=== PATIENT | male | born 1940 | race Caucasian/White ===

== ENCOUNTER 2016-08-31 14:05 | Inpatient (IN) | payer MEDICARE, OTHER ==
[~2016-08-31] VITALS: Ht 154.9 cm; Wt 48.6 kg
[2016-08-31] MEDS ORDERED: IPRATRPIUM/ALBUTEROL 0.5/2.5MG 3 ML NEBU. NEB ONE (14:30)
[2016-08-31] MEDS ORDERED: PREDNISONE 20 MG TABLET PO ONE (14:30)
[2016-08-31 14:38] LABS: BASO % 1 % (0-3); EOS % 6 % (0-3); HEMATOCRIT 39.3 % (39.0-53.0); HEMOGLOBIN 12.4 g/dL (13.0-17.5); LYMPH # 0.3 x10^3/uL (1.0-4.8); LYMPH % 7 % (24-48); MEAN CORPUSCULAR HEMOGLOBIN 28 pg (25-35); MEAN CORPUSCULAR HGB CONC 32 g/dL (31-37); MEAN CORPUSCULAR VOLUME 88 fL (79-100); MONO % 10 % (0-9); NEUT % 77 % (31-73); PLATELET COUNT 190 x10^3/uL (140-400); RED BLOOD COUNT 4.45 x10^6/uL (4.30-5.70); RED CELL DISTRIBUTION WIDTH 14.5 % (11.5-14.5); WHITE BLOOD COUNT 4.5 x10^3/uL (4.0-11.0)
[2016-08-31 14:46] LABS: CREATININE 0.6 mg/dL (0.7-1.3); GFR 130.6; POTASSIUM 4.5 mmol/L (3.5-5.1)
[2016-08-31 14:54] LABS: ALBUMIN 3.3 g/dL (3.4-5.0); DIRECT BILIRUBIN 0.1 mg/dL (0.0-0.2); TOTAL BILIRUBIN 0.6 mg/dL (0.2-1.0)
--- NOTE | 2016-08-31 15:02 | RAD ---
Indication chest pain. Shortness of air. Cough. A single view of the chest was obtained. No prior imaging is available. There are probable background changes of emphysema and/or fibrosis. There are changes in the right upper lobe likely reflecting scar. There is slightly increased density and volume loss in the left lower lobe probably chronic reflecting fibrosis. Underlying inflammation at the left lung base is not entirely excluded. A definite consolidated pneumonia is not seen. Heart size and pulmonary vessels are normal. Significant pleural fluid is not seen. There is no pneumothorax. The bony structures appear grossly intact. IMPRESSION: Chronic changes. No definite acute finding. Changes in the right upper and left lower lobe most likely chronic and reflecting scarring or fibrosis.. See above discussion
--- NOTE | 2016-08-31 15:20 | PHYS DOC ---
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 He received a nebulizer treatment prior to arrival by EMS. This did improve his symptoms. He reports wearing oxygen at home regularly. He denies chest pain abdominal pain nausea vomiting fevers or chills. Onset 2 days Location lungs Duration intermittent Associated with cough No specific timing. Review of Systems Review of Systems ROS negative for chest pain abdominal pain nausea vomiting fevers chills. All other review of systems is negative unless otherwise noted in history of present illness. Current Medications Current Medications Current Medications Medications (Trade) Dose Ordered Sig/Cody Start Time Stop Time Status Last Admin Dose Admin Albuterol/ Ipratropium (Duoneb) 3 ml 1X ONCE 08/31/16 14:30 08/31/16 14:31 DC 08/31/16 15:14 3 ML Prednisone (Prednisone) 50 mg 1X ONCE 08/31/16 14:30 08/31/16 14:31 DC 08/31/16 14:58 50 MG Allergies Allergies Allergies Coded Allergies Type Severity Reaction Last Updated Verified No Known Drug Allergies 08/31/16 No Physical Exam Physical Exam Constitutional: Well developed, well nourished, no acute distress, non-toxic appearance. HENT: Normocephalic, atraumatic, bilateral external ears normal, oropharynx moist, no oral exudates, nose normal. [] Eyes: PERRLA, EOMI, conjunctiva normal, no discharge. Neck: Normal range of motion, no tenderness, supple, no stridor. [] Cardiovascular:Heart rate regular rhythm, no murmur Lungs & Thorax: Patient is wheezing bilaterally with prolonged expiratory phase. No crackles present. Abdomen: Bowel sounds normal, soft, no tenderness, no masses, no pulsatile masses. [] Skin: Warm, dry, no erythema, no rash. Back: No tenderness, no CVA tenderness. Extremities: No tenderness, no cyanosis, no clubbing, ROM intact, no edema. Neurologic: Alert and oriented X 3, normal motor function, normal sensory function, no focal deficits noted. [] Psychologic: Affect normal, judgement normal, mood normal. [] Current Patient Data Vital Signs Vital Signs Date Time Temp Pulse Resp B/P Pulse Ox O2 Delivery O2 Flow Rate FiO2 08/31/16 15:14 95 Nasal Cannula 2.0 08/31/16 14:05 97.9 62 24 151/85 97.9 Lab Values Laboratory Tests Test 08/31/16 14:15 White Blood Count 4.5x10^3/uL (4.0-11.0) Red Blood Count 4.45x10^6/uL (4.30-5.70) Hemoglobin 12.4g/dL (13.0-17.5) L Hematocrit 39.3% (39.0-53.0) Mean Corpuscular Volume 88fL (79-100) Mean Corpuscular Hemoglobin 28pg (25-35) Mean Corpuscular Hemoglobin Concent 32g/dL (31-37) Red Cell Distribution Width 14.5% (11.5-14.5) Platelet Count 190x10^3/uL (140-400) Neutrophils (%) (Auto) 77% (31-73) H Lymphocytes (%) (Auto) 7% (24-48) L Monocytes (%) (Auto) 10% (0-9) H Eosinophils (%) (Auto) 6% (0-3) H Basophils (%) (Auto) 1% (0-3) Neutrophils # (Auto) 3.5x10^3uL (1.8-7.7) Lymphocytes # (Auto) 0.3x10^3/uL (1.0-4.8) L Monocytes # (Auto) 0.4x10^3/uL (0.0-1.1) Eosinophils # (Auto) 0.3x10^3/uL (0.0-0.7) Basophils # (Auto) 0.0x10^3/uL (0.0-0.2) Sodium Level 137mmol/L (136-145) Potassium Level 4.5mmol/L (3.5-5.1) Chloride Level 96mmol/L (98-107) L Carbon Dioxide Level 35mmol/L (21-32) H Anion Gap 6 (6-14) Blood Urea Nitrogen 15mg/dL (8-26) Creatinine 0.6mg/dL (0.7-1.3) L Estimated GFR (Cockcroft-Gault) 130.6 Glucose Level 97mg/dL (70-99) Calcium Level 9.0mg/dL (8.5-10.1) Total Bilirubin 0.6mg/dL (0.2-1.0) Direct Bilirubin 0.1mg/dL (0.0-0.2) Aspartate Amino Transferase (AST) 17U/L (15-37) Alanine Aminotransferase (ALT) 21U/L (16-63) Alkaline Phosphatase 94U/L (46-116) Troponin I Quantitative < 0.017ng/mL (0.000-0.055) AM-Tji-Z-Type Natriuretic Peptide 174pg/mL (0-449) Total Protein 7.0g/dL (6.4-8.2) Albumin 3.3g/dL (3.4-5.0) L Lipase 96U/L (73-393) Laboratory Tests 08/31/16 14:15 Laboratory Tests 08/31/16 14:15 EKG EKG [] EKG was attempted to be obtained for greater than 30 minutes and even after all of this work it is very difficult to interpret because of extraordinarily varying baseline. The patient's rate is within normal limits. P-wave is appreciable. [place] is within normal limits. Intervals are within normal limits. ST segments are difficult to interpret based on the patient's variable baseline. Patient's symptoms are not suggestive of ACS. Troponin negative. Improved with DuoNeb. Radiology/Procedures Radiology/Procedures [] Chest x-ray showed chronic changes without acute findings. Course & Med Decision Making Course & Med Decision Making Pertinent Labs and Imaging studies reviewed. (See chart for details) 76-year-old male presenting to the emergency department with cough and shortness of breath with wheezing on physical exam consistent with COPD exacerbation. He was given DuoNeb therapies along with steroids. On reevaluation his symptoms continued though mildly improved. Chest x-ray unremarkable. EKG difficult to interpret. No obvious abnormalities. CBC showed mild anemia. Chemistry panel largely unremarkable. Troponin negative. ProBNP within normal limits. He was then admitted for further evaluation workup and care. Dragon Disclaimer Dragon Disclaimer This electronic medical record was generated, in whole or in part, using a voice recognition dictation system. Departure Departure Impression: Primary Impression: COPD (chronic obstructive pulmonary disease) Disposition: 09 ADMITTED INPATIENT Admitting Physician: Other (RUST) Condition: STABLE Referrals: DANIEL FLOWERS NP (PCP) MICHAEL AUSTIN MD Aug 31, 2016 15:19
[2016-08-31] MEDS: IPRATRPIUM/ALBUTEROL 0.5/2.5MG 3 ML NEBU. NEB SCH ×2 (15:26→19:52)
[2016-08-31] MEDS ORDERED: ONDANSETRON PF 4 MG/2 ML VIAL. IV PRN (15:30)
[2016-08-31] MEDS ORDERED: MORPHINE SULFATE 2 MG/ML DISP.SYRIN. IV PRN (15:30)
[2016-08-31 19:00] VITALS: BP 123/72
[2016-08-31 22:48] VITALS: BP 121/60
[2016-09-01 02:53] VITALS: BP 133/62
[2016-09-01 05:06] LABS: BASO % 0 % (0-3); EOS % 0 % (0-3); HEMATOCRIT 38.5 % (39.0-53.0); HEMOGLOBIN 12.1 g/dL (13.0-17.5); LYMPH # 0.2 x10^3/uL (1.0-4.8); LYMPH % 5 % (24-48); MEAN CORPUSCULAR HEMOGLOBIN 28 pg (25-35); MEAN CORPUSCULAR HGB CONC 31 g/dL (31-37); MEAN CORPUSCULAR VOLUME 88 fL (79-100); MONO % 2 % (0-9); NEUT % 93 % (31-73); PLATELET COUNT 180 x10^3/uL (140-400); RED BLOOD COUNT 4.36 x10^6/uL (4.30-5.70); RED CELL DISTRIBUTION WIDTH 14.5 % (11.5-14.5); WHITE BLOOD COUNT 3.8 x10^3/uL (4.0-11.0)
[2016-09-01 06:20] LABS: CALCIUM 9.2 mg/dL (8.5-10.1); CREATININE 0.5 mg/dL (0.7-1.3); GFR 161.2; POTASSIUM 3.9 mmol/L (3.5-5.1)
--- NOTE | 2016-09-01 06:44 | EKG ---
[facility] [address] [place] [address] Test Date: 2016-08-31 Test Time: 14:42:41 Pat Name: YARELI FORMAN Department: Room: [facility] Gender: M Owner/Photographer: : 1940 Requested By: MICHAEL AUSTIN Order Number: [id number] Reading MD: Alissa Mccarthy Measurements Intervals [place] Rate: 76 P: OR: QRS: 39 QRSD: 94 T: 78 QT: 372 QTc: 423 Interpretive Statements SINUS RHYTHM T ABNORMALITY IN HIGH LATERAL LEADS ABNORMAL ECG RI6.01 No previous ECG available for comparison Electronically Signed On 09-03-2016 23:22:49 [employer] by Alissa Mccarthy
[2016-09-01 06:57] LABS: PLT ESTIMATE ADEQUATE (ADEQUATE)
[2016-09-01 07:00] VITALS: BP 134/58
[2016-09-01] MEDS: IPRATRPIUM/ALBUTEROL 0.5/2.5MG 3 ML NEBU. NEB SCH ×5 (07:06→20:09)
[2016-09-01] MEDS ORDERED: HYDR-2672 PO (09:49)
[2016-09-01] MEDS ORDERED: TIOT18CA IH (09:49)
[2016-09-01] MEDS ORDERED: MORP30TA3 PO (09:49)
[2016-09-01] MEDS ORDERED: ERGO500012 PO (09:49)
[2016-09-01] MEDS ORDERED: FLUT1DIS3 IH (09:49)
[2016-09-01] MEDS ORDERED: ESOM20CA PO (09:49)
[2016-09-01 11:27] VITALS: BP 114/56
[2016-09-01] MEDS ORDERED: HYDROCODONE/APAP 10/325 TABLET. PO PRN (11:45)
[2016-09-01] MEDS ORDERED: MORPHINE ER 30 MG TABLET.ER PO PRN (11:45)
[2016-09-01] MEDS ORDERED: methylPREDNISolone SOD SUCC PF 40 MG/ML VIAL. IV SCH (13:30)
[2016-09-01] MEDS: PANTOPRAZOLE 40 MG TABLET. PO SCH (14:33)
[2016-09-01] MEDS: methylPREDNISolone SOD SUCC PF 40 MG/ML VIAL. IV SCH ×2 (14:34→20:37)
[2016-09-01 15:03] VITALS: BP 143/66
--- NOTE | 2016-09-01 15:05 | HP ---
ADMIT DATE: 09/01/2016 CHIEF COMPLAINT: Shortness of breath and cough. HISTORY OF PRESENT ILLNESS: The patient is a pleasant elderly male who has known COPD. He presents with shortness of breath and cough. It has been worsening over the past couple of days. He has got associated weakness, rates it at 9 out of 10. I have discussed the case with the ER physician. We are going to admit the patient and consult Pulmonary Medicine. PAST MEDICAL HISTORY: COPD, Charcot-Daniella tooth. ALLERGIES: None. FAMILY HISTORY: Coronary artery disease. SOCIAL HISTORY: Smokes. No drinking or drugs. MEDICATIONS: Reviewed, please refer to the MRAD. REVIEW OF SYSTEMS: GENERAL: No history of weight change, weakness or fevers. SKIN: No bruising, hair changes or rashes. EYES: No blurred, double or loss of vision. NOSE AND THROAT: No history of nosebleeds, hoarseness or sore throat. HEART: No history of palpitations, chest pain or shortness of breath on exertion. LUNGS: He complains of shortness of breath and cough. GASTROINTESTINAL: Denies changes in appetite, nausea, vomiting, diarrhea or constipation. GENITOURINARY: No history of frequency, urgency, hesitancy or nocturia. NEUROLOGIC: Denies history of numbness, tingling, tremor or weakness. PSYCHIATRIC: No history of panic, anxiety or depression. ENDOCRINE: No history of heat or cold intolerance, polyuria or polydipsia. EXTREMITIES: Denies muscle weakness, joint pain, pain on walking or stiffness. PHYSICAL EXAMINATION: VITAL SIGNS: Temperature afebrile, pulse 80, respirations 20, blood pressure 114/56, O2 sat 80% on 2 liters. GENERAL: He is alert, cooperative, weak. HEART: Normal S1, S2. LUNGS: Very diminished. ABDOMEN: Soft, positive bowel sounds. EXTREMITIES: 1+ edema with Charcot joints. ENDOCRINE: No thyromegaly. LYMPHATICS: No cervical nodes. HEMATOPOIETIC: No bruising. LABORATORY DATA: White count 4, hemoglobin 12, platelets 190. Electrolytes; sodium 139, potassium 3.9, chloride 96, bicarbonate 35, BUN 15, creatinine 0.5, glucose 78. Chest x-ray shows chronic changes, but no acute changes. He has scarring and fibrosis. ASSESSMENT AND PLAN: [id number] respiratory failure secondary to chronic obstructive pulmonary disease. The patient has been admitted. We will treat with IV steroids, breathing treatments, oxygen, and antibiotics if Pulmonary agrees. Consult Dr. Diaz, continue home meds, PT, OT, frequent labs. ELEAZAR MEDINA DO DR: BRENNON/iggy JOB#: [id number] / [id number]
--- NOTE | 2016-09-01 16:14 | PDOC ---
PULMONARY PROGRESS NOTES Vitals Vital Signs Date Time Temp Pulse Resp B/P Pulse Ox O2 Delivery O2 Flow Rate FiO2 09/01/16 15:48 Nasal Cannula 2.0 09/01/16 15:03 97.8 84 16 143/66 94 97.8 Labs Laboratory Tests Test 08/31/16 14:15 08/31/16 20:40 09/01/16 03:45 09/01/16 04:50 White Blood Count 4.5x10^3/uL (4.0-11.0) 3.8x10^3/uL (4.0-11.0) Red Blood Count 4.45x10^6/uL (4.30-5.70) 4.36x10^6/uL (4.30-5.70) Hemoglobin 12.4g/dL (13.0-17.5) 12.1g/dL (13.0-17.5) Hematocrit 39.3% (39.0-53.0) 38.5% (39.0-53.0) Mean Corpuscular Volume 88fL (79-100) 88fL (79-100) Mean Corpuscular Hemoglobin 28pg (25-35) 28pg (25-35) Mean Corpuscular Hemoglobin Concent 32g/dL (31-37) 31g/dL (31-37) Red Cell Distribution Width 14.5% (11.5-14.5) 14.5% (11.5-14.5) Platelet Count 190x10^3/uL (140-400) 180x10^3/uL (140-400) Neutrophils (%) (Auto) 77% (31-73) 93% (31-73) Lymphocytes (%) (Auto) 7% (24-48) 5% (24-48) Monocytes (%) (Auto) 10% (0-9) 2% (0-9) Eosinophils (%) (Auto) 6% (0-3) 0% (0-3) Basophils (%) (Auto) 1% (0-3) 0% (0-3) Neutrophils # (Auto) 3.5x10^3uL (1.8-7.7) 3.5x10^3uL (1.8-7.7) Lymphocytes # (Auto) 0.3x10^3/uL (1.0-4.8) 0.2x10^3/uL (1.0-4.8) Monocytes # (Auto) 0.4x10^3/uL (0.0-1.1) 0.1x10^3/uL (0.0-1.1) Eosinophils # (Auto) 0.3x10^3/uL (0.0-0.7) 0.0x10^3/uL (0.0-0.7) Basophils # (Auto) 0.0x10^3/uL (0.0-0.2) 0.0x10^3/uL (0.0-0.2) Sodium Level 137mmol/L (136-145) 139mmol/L (136-145) Potassium Level 4.5mmol/L (3.5-5.1) 3.9mmol/L (3.5-5.1) Chloride Level 96mmol/L (98-107) 96mmol/L (98-107) Carbon Dioxide Level 35mmol/L (21-32) 35mmol/L (21-32) Anion Gap 6 (6-14) 8 (6-14) Blood Urea Nitrogen 15mg/dL (8-26) 15mg/dL (8-26) Creatinine 0.6mg/dL (0.7-1.3) 0.5mg/dL (0.7-1.3) Estimated GFR (Cockcroft-Gault) 130.6 161.2 Glucose Level 97mg/dL (70-99) 78mg/dL (70-99) Calcium Level 9.0mg/dL (8.5-10.1) 9.2mg/dL (8.5-10.1) Total Bilirubin 0.6mg/dL (0.2-1.0) Direct Bilirubin 0.1mg/dL (0.0-0.2) Aspartate Amino Transf (AST/SGOT) 17U/L (15-37) Alanine Aminotransferase (ALT/SGPT) 21U/L (16-63) Alkaline Phosphatase 94U/L (46-116) Troponin I Quantitative < 0.017ng/mL (0.000-0.055) < 0.017ng/mL (0.000-0.055) < 0.017ng/mL (0.000-0.055) CN-Ide-A-Type Natriuretic Peptide 174pg/mL (0-449) Total Protein 7.0g/dL (6.4-8.2) Albumin 3.3g/dL (3.4-5.0) Lipase 96U/L (73-393) Segmented Neutrophils % 98% (35-66) Lymphocytes % 2% (24-48) Platelet Estimate Adequate (ADEQUATE) Laboratory Tests Test 08/31/16 20:40 09/01/16 03:45 09/01/16 04:50 Troponin I Quantitative < 0.017ng/mL (0.000-0.055) < 0.017ng/mL (0.000-0.055) Sodium Level 139mmol/L (136-145) Potassium Level 3.9mmol/L (3.5-5.1) Chloride Level 96mmol/L (98-107) Carbon Dioxide Level 35mmol/L (21-32) Anion Gap 8 (6-14) Blood Urea Nitrogen 15mg/dL (8-26) Creatinine 0.5mg/dL (0.7-1.3) Estimated GFR (Cockcroft-Gault) 161.2 Glucose Level 78mg/dL (70-99) Calcium Level 9.2mg/dL (8.5-10.1) White Blood Count 3.8x10^3/uL (4.0-11.0) Red Blood Count 4.36x10^6/uL (4.30-5.70) Hemoglobin 12.1g/dL (13.0-17.5) Hematocrit 38.5% (39.0-53.0) Mean Corpuscular Volume 88fL (79-100) Mean Corpuscular Hemoglobin 28pg (25-35) Mean Corpuscular Hemoglobin Concent 31g/dL (31-37) Red Cell Distribution Width 14.5% (11.5-14.5) Platelet Count 180x10^3/uL (140-400) Neutrophils (%) (Auto) 93% (31-73) Lymphocytes (%) (Auto) 5% (24-48) Monocytes (%) (Auto) 2% (0-9) Eosinophils (%) (Auto) 0% (0-3) Basophils (%) (Auto) 0% (0-3) Neutrophils # (Auto) 3.5x10^3uL (1.8-7.7) Lymphocytes # (Auto) 0.2x10^3/uL (1.0-4.8) Monocytes # (Auto) 0.1x10^3/uL (0.0-1.1) Eosinophils # (Auto) 0.0x10^3/uL (0.0-0.7) Basophils # (Auto) 0.0x10^3/uL (0.0-0.2) Segmented Neutrophils % 98% (35-66) Lymphocytes % 2% (24-48) Platelet Estimate Adequate (ADEQUATE) Medications Active Scripts Medications Dose Route/Sig Days Date Category Vitamin D2 (Ergocalciferol (Vitamin D2)) 50,000 Unit Capsule 1 Cap PO TWICE WEEKLY 09/01/16 Reported Advair 250-50 Diskus (Fluticasone/Salmeterol) 1 Each Disk.w.dev 1 Puff IH BID 09/01/16 Reported Morphine Sulfate Er (Morphine Sulfate) 30 Mg Tablet.er 1 Tab PO PRN TID PRN 09/01/16 Reported Hydrocodone-Apap 10-325 (Hydrocodone Bit/Acetaminophen) 1 Each Tablet 1 Tab PO PRN Q6HRS PRN 09/01/16 Reported Nexium Capsule (Esomeprazole Magnesium) 20 Mg Capsule.dr 1 Cap PO DAILY 09/01/16 Reported Spiriva (Tiotropium Ursa) 18 Mcg Cap.w.dev 1 Cap IH DAILY 09/01/16 Reported Impression . consult dictated thanks aecopd acute resp failure see orders RUDY LYON MD Sep 01, 2016 16:14
[2016-09-01] MEDS: DOXYCYCLINE HYCLATE 100 MG TABLET PO SCH (18:35)
[2016-09-01 19:54] VITALS: BP 133/65
[2016-09-01] MEDS: BUDESONIDE 0.5 MG/2 ML NEBU NEB SCH (20:09)
--- NOTE | 2016-09-01 22:55 | CONS ---
DATE OF CONSULTATION: 08/31/2016 ATTENDING PHYSICIAN: Dr. Goode. DICTATING PHYSICIAN: Dr. Rudy Lyon. REASON FOR CONSULTATION: The patient seen in pulmonary consultation at the request of Dr. Goode for increasing shortness of air. HISTORY OF PRESENT ILLNESS: The patient is a 76-year-old male that has underlying chronic obstructive pulmonary disease, has been on oxygen supplementation for the past 7 years at 2 liters per nasal cannula, presented with increasing shortness of breath over the last 24-48 hours. No documented fever, subjective fever; cough productive of yellow sputum. The patient states he felt better all over. He presented and was admitted. I have reviewed his chest x-ray, which revealed no evidence of infiltrates. There are some chronic changes, mostly in the upper lobes compatible with fibrosis. PAST MEDICAL HISTORY: 1. COPD. 2. Sldjfvo-Vbfke-Mwwwc disease. ALLERGIES: No known drug allergies. FAMILY HISTORY: Coronary artery disease. SOCIAL HISTORY: He continues to smoke. Denies any alcohol intake. REVIEW OF SYSTEMS: As indicated above, otherwise, a 10-point system was reviewed and negative. MEDICATIONS: List was reviewed. FAMILY HISTORY: Noncontributory. PHYSICAL EXAMINATION: GENERAL: The patient was in no respiratory distress. VITAL SIGNS: Stable. O2 saturation currently on 2 liters was greater than 92%. HEENT: Eyes, the sclerae were nonicteric. NECK: Jugular venous distention was not elevated. No lymphadenopathy. CHEST: Full expansion. LUNGS: Coarse breath sounds, expiratory wheeze. CARDIOVASCULAR: Regular rate and rhythm with S1, S2, no S3. ABDOMEN: Soft, nontender, nondistended. EXTREMITIES: No clubbing, cyanosis or edema. NEUROLOGIC: The patient was awake, alert, following commands. A detailed neuro exam was not performed. LABORATORY DATA: Reviewed. White count was normal. Hemoglobin and hematocrit were noted. Electrolytes were noted. IMPRESSION: 1. Acute on chronic respiratory failure. 2. Acute exacerbation of chronic obstructive pulmonary disease. 3. Acute nonspecific bronchitis. 4. Chronic changes on x-ray compatible with pulmonary fibrosis. PLAN: 1. Continue oxygen supplementation. 2. Steroids. 3. Antibiotics for acute bronchitis. I do appreciate the privilege in sharing in the patient's care. RUDY LYON MD DR: ELMO/iggy JOB#: [id number] / [id number]
[2016-09-01 23:06] VITALS: BP 135/61
[2016-09-02 01:15] LABS: OBC FLU VALID
[2016-09-02 03:12] VITALS: BP 144/71
[2016-09-02 04:26] LABS: BASO % 0 % (0-3); EOS % 0 % (0-3); HEMATOCRIT 36.9 % (39.0-53.0); HEMOGLOBIN 11.6 g/dL (13.0-17.5); LYMPH # 0.2 x10^3/uL (1.0-4.8); LYMPH % 5 % (24-48); MEAN CORPUSCULAR HEMOGLOBIN 28 pg (25-35); MEAN CORPUSCULAR HGB CONC 32 g/dL (31-37); MEAN CORPUSCULAR VOLUME 87 fL (79-100); MONO % 1 % (0-9); NEUT % 94 % (31-73); PLATELET COUNT 198 x10^3/uL (140-400); RED BLOOD COUNT 4.24 x10^6/uL (4.30-5.70); RED CELL DISTRIBUTION WIDTH 14.3 % (11.5-14.5); WHITE BLOOD COUNT 3.5 x10^3/uL (4.0-11.0)
[2016-09-02 05:41] LABS: CALCIUM 9.1 mg/dL (8.5-10.1); CREATININE 0.6 mg/dL (0.7-1.3); GFR 130.6; POTASSIUM 4.6 mmol/L (3.5-5.1)
[2016-09-02 07:00] VITALS: BP 128/60
[2016-09-02] MEDS: BUDESONIDE 0.5 MG/2 ML NEBU NEB SCH ×2 (07:06→19:08)
[2016-09-02] MEDS: IPRATRPIUM/ALBUTEROL 0.5/2.5MG 3 ML NEBU. NEB SCH ×4 (07:06→19:08)
[2016-09-02] MEDS: PANTOPRAZOLE 40 MG TABLET. PO SCH (08:32)
[2016-09-02] MEDS: methylPREDNISolone SOD SUCC PF 40 MG/ML VIAL. IV SCH ×2 (08:32→20:22)
[2016-09-02] MEDS: DOXYCYCLINE HYCLATE 100 MG TABLET PO SCH ×2 (08:32→20:23)
[2016-09-02 11:00] VITALS: BP 107/58
[2016-09-02] MEDS ORDERED: POLYETHYLENE GLYCOL 3350 17 GM PACKET. PO PRN (14:00)
[2016-09-02] MEDS ORDERED: MAGNESIUM HYDROXIDE 2,400 MG/30 ML ORAL.SUSP. PO PRN (14:00)
--- NOTE | 2016-09-02 14:01 | PDOC ---
PROGRESS NOTES Chief Complaint Chief Complaint - Acute hypoxic respiratory failure - Acute exacerbation COPD - [place] Daniella Tooth History of Present Illness History of Present Illness 76 year old male examined while lying in bed this morning. He states he does feel his condition has improved and that he is breathing much better. He complains of a persistent hacking cough that is occasionally productive. Denies fevers or chills. Vitals Vitals Vital Signs Date Time Temp Pulse Resp B/P Pulse Ox O2 Delivery O2 Flow Rate FiO2 09/02/16 11:22 97 Nasal Cannula 2.0 09/02/16 11:00 97.5 76 20 107/58 97.5 Physical Exam General: Alert, Oriented X3, Cooperative, No acute distress Heart: Regular rate, Normal S1, Normal S2, No murmurs Lungs: Wheezing (slight b/l) Abdomen: Normal bowel sounds, Soft, No tenderness Extremities: No clubbing, No cyanosis, No edema Skin: No breakdown, No significant lesion Labs LABS Laboratory Tests Test 09/02/16 00:30 09/02/16 03:55 Influenza Type A Antigen Negative (NEGATIVE) Influenza Type B Antigen Negative (NEGATIVE) White Blood Count 3.5x10^3/uL (4.0-11.0) Red Blood Count 4.24x10^6/uL (4.30-5.70) Hemoglobin 11.6g/dL (13.0-17.5) Hematocrit 36.9% (39.0-53.0) Mean Corpuscular Volume 87fL (79-100) Mean Corpuscular Hemoglobin 28pg (25-35) Mean Corpuscular Hemoglobin Concent 32g/dL (31-37) Red Cell Distribution Width 14.3% (11.5-14.5) Platelet Count 198x10^3/uL (140-400) Neutrophils (%) (Auto) 94% (31-73) Lymphocytes (%) (Auto) 5% (24-48) Monocytes (%) (Auto) 1% (0-9) Eosinophils (%) (Auto) 0% (0-3) Basophils (%) (Auto) 0% (0-3) Neutrophils # (Auto) 3.3x10^3uL (1.8-7.7) Lymphocytes # (Auto) 0.2x10^3/uL (1.0-4.8) Monocytes # (Auto) 0.0x10^3/uL (0.0-1.1) Eosinophils # (Auto) 0.0x10^3/uL (0.0-0.7) Basophils # (Auto) 0.0x10^3/uL (0.0-0.2) Sodium Level 136mmol/L (136-145) Potassium Level 4.6mmol/L (3.5-5.1) Chloride Level 97mmol/L (98-107) Carbon Dioxide Level 34mmol/L (21-32) Anion Gap 5 (6-14) Blood Urea Nitrogen 19mg/dL (8-26) Creatinine 0.6mg/dL (0.7-1.3) Estimated GFR (Cockcroft-Gault) 130.6 Glucose Level 121mg/dL (70-99) Calcium Level 9.1mg/dL (8.5-10.1) Review of Systems Review of Systems Cough, hacking and occasionally productive Some shortness of breath Denies fevers or chills Assessment and Plan Assessmemt and Plan Assessment: - Acute hypoxic respiratory failure - Acute exacerbation COPD - [place] Daniella [facility] Plan: - Continue Pulmicort and Solumedrol. Pulmonology following and might adjust. - Continue breathing treatments as needed - Supplement oxygen prn - Continue Doxycycline 100mg BID - PT/OT as tolerated - Recheck labs - Appreciate subspecialty input Problems: Comment Review of Relevant I have reviewed the following items shawn (where applicable) has been applied. Labs Laboratory Tests Test 08/31/16 14:15 08/31/16 20:40 09/01/16 03:45 09/01/16 04:50 White Blood Count 4.5x10^3/uL (4.0-11.0) 3.8x10^3/uL (4.0-11.0) Red Blood Count 4.45x10^6/uL (4.30-5.70) 4.36x10^6/uL (4.30-5.70) Hemoglobin 12.4g/dL (13.0-17.5) 12.1g/dL (13.0-17.5) Hematocrit 39.3% (39.0-53.0) 38.5% (39.0-53.0) Mean Corpuscular Volume 88fL (79-100) 88fL (79-100) Mean Corpuscular Hemoglobin 28pg (25-35) 28pg (25-35) Mean Corpuscular Hemoglobin Concent 32g/dL (31-37) 31g/dL (31-37) Red Cell Distribution Width 14.5% (11.5-14.5) 14.5% (11.5-14.5) Platelet Count 190x10^3/uL (140-400) 180x10^3/uL (140-400) Neutrophils (%) (Auto) 77% (31-73) 93% (31-73) Lymphocytes (%) (Auto) 7% (24-48) 5% (24-48) Monocytes (%) (Auto) 10% (0-9) 2% (0-9) Eosinophils (%) (Auto) 6% (0-3) 0% (0-3) Basophils (%) (Auto) 1% (0-3) 0% (0-3) Neutrophils # (Auto) 3.5x10^3uL (1.8-7.7) 3.5x10^3uL (1.8-7.7) Lymphocytes # (Auto) 0.3x10^3/uL (1.0-4.8) 0.2x10^3/uL (1.0-4.8) Monocytes # (Auto) 0.4x10^3/uL (0.0-1.1) 0.1x10^3/uL (0.0-1.1) Eosinophils # (Auto) 0.3x10^3/uL (0.0-0.7) 0.0x10^3/uL (0.0-0.7) Basophils # (Auto) 0.0x10^3/uL (0.0-0.2) 0.0x10^3/uL (0.0-0.2) Sodium Level 137mmol/L (136-145) 139mmol/L (136-145) Potassium Level 4.5mmol/L (3.5-5.1) 3.9mmol/L (3.5-5.1) Chloride Level 96mmol/L (98-107) 96mmol/L (98-107) Carbon Dioxide Level 35mmol/L (21-32) 35mmol/L (21-32) Anion Gap 6 (6-14) 8 (6-14) Blood Urea Nitrogen 15mg/dL (8-26) 15mg/dL (8-26) Creatinine 0.6mg/dL (0.7-1.3) 0.5mg/dL (0.7-1.3) Estimated GFR (Cockcroft-Gault) 130.6 161.2 Glucose Level 97mg/dL (70-99) 78mg/dL (70-99) Calcium Level 9.0mg/dL (8.5-10.1) 9.2mg/dL (8.5-10.1) Total Bilirubin 0.6mg/dL (0.2-1.0) Direct Bilirubin 0.1mg/dL (0.0-0.2) Aspartate Amino Transf (AST/SGOT) 17U/L (15-37) Alanine Aminotransferase (ALT/SGPT) 21U/L (16-63) Alkaline Phosphatase 94U/L (46-116) Troponin I Quantitative < 0.017ng/mL (0.000-0.055) < 0.017ng/mL (0.000-0.055) < 0.017ng/mL (0.000-0.055) UT-Yvx-U-Type Natriuretic Peptide 174pg/mL (0-449) Total Protein 7.0g/dL (6.4-8.2) Albumin 3.3g/dL (3.4-5.0) Lipase 96U/L (73-393) Segmented Neutrophils % 98% (35-66) Lymphocytes % 2% (24-48) Platelet Estimate Adequate (ADEQUATE) Test 09/02/16 00:30 09/02/16 03:55 Influenza Type A Antigen Negative (NEGATIVE) Influenza Type B Antigen Negative (NEGATIVE) White Blood Count 3.5x10^3/uL (4.0-11.0) Red Blood Count 4.24x10^6/uL (4.30-5.70) Hemoglobin 11.6g/dL (13.0-17.5) Hematocrit 36.9% (39.0-53.0) Mean Corpuscular Volume 87fL (79-100) Mean Corpuscular Hemoglobin 28pg (25-35) Mean Corpuscular Hemoglobin Concent 32g/dL (31-37) Red Cell Distribution Width 14.3% (11.5-14.5) Platelet Count 198x10^3/uL (140-400) Neutrophils (%) (Auto) 94% (31-73) Lymphocytes (%) (Auto) 5% (24-48) Monocytes (%) (Auto) 1% (0-9) Eosinophils (%) (Auto) 0% (0-3) Basophils (%) (Auto) 0% (0-3) Neutrophils # (Auto) 3.3x10^3uL (1.8-7.7) Lymphocytes # (Auto) 0.2x10^3/uL (1.0-4.8) Monocytes # (Auto) 0.0x10^3/uL (0.0-1.1) Eosinophils # (Auto) 0.0x10^3/uL (0.0-0.7) Basophils # (Auto) 0.0x10^3/uL (0.0-0.2) Sodium Level 136mmol/L (136-145) Potassium Level 4.6mmol/L (3.5-5.1) Chloride Level 97mmol/L (98-107) Carbon Dioxide Level 34mmol/L (21-32) Anion Gap 5 (6-14) Blood Urea Nitrogen 19mg/dL (8-26) Creatinine 0.6mg/dL (0.7-1.3) Estimated GFR (Cockcroft-Gault) 130.6 Glucose Level 121mg/dL (70-99) Calcium Level 9.1mg/dL (8.5-10.1) Laboratory Tests Test 09/02/16 00:30 09/02/16 03:55 Influenza Type A Antigen Negative (NEGATIVE) Influenza Type B Antigen Negative (NEGATIVE) White Blood Count 3.5x10^3/uL (4.0-11.0) Red Blood Count 4.24x10^6/uL (4.30-5.70) Hemoglobin 11.6g/dL (13.0-17.5) Hematocrit 36.9% (39.0-53.0) Mean Corpuscular Volume 87fL (79-100) Mean Corpuscular Hemoglobin 28pg (25-35) Mean Corpuscular Hemoglobin Concent 32g/dL (31-37) Red Cell Distribution Width 14.3% (11.5-14.5) Platelet Count 198x10^3/uL (140-400) Neutrophils (%) (Auto) 94% (31-73) Lymphocytes (%) (Auto) 5% (24-48) Monocytes (%) (Auto) 1% (0-9) Eosinophils (%) (Auto) 0% (0-3) Basophils (%) (Auto) 0% (0-3) Neutrophils # (Auto) 3.3x10^3uL (1.8-7.7) Lymphocytes # (Auto) 0.2x10^3/uL (1.0-4.8) Monocytes # (Auto) 0.0x10^3/uL (0.0-1.1) Eosinophils # (Auto) 0.0x10^3/uL (0.0-0.7) Basophils # (Auto) 0.0x10^3/uL (0.0-0.2) Sodium Level 136mmol/L (136-145) Potassium Level 4.6mmol/L (3.5-5.1) Chloride Level 97mmol/L (98-107) Carbon Dioxide Level 34mmol/L (21-32) Anion Gap 5 (6-14) Blood Urea Nitrogen 19mg/dL (8-26) Creatinine 0.6mg/dL (0.7-1.3) Estimated GFR (Cockcroft-Gault) 130.6 Glucose Level 121mg/dL (70-99) Calcium Level 9.1mg/dL (8.5-10.1) Medications Current Medications Albuterol/ Ipratropium (Duoneb) 3 ml 1X ONCE NEB Last administered on 15:14; Start 08/31/16 at 14:30; Stop 08/31/16 at 14:31; Status DC Prednisone (Prednisone) 50 mg 1X ONCE PO Last administered on 08/31/16 14:58; Start 08/31/16 at 14:30; Stop 08/31/16 at 14:31; Status DC Ondansetron HCl (Zofran) 4 mg PRN Q8HRS PRN IV NAUSEA/VOMITING; Start 08/31/16 at 15:30; Stop 09/01/16 at 15:29; Status DC Morphine Sulfate 2 mg PRN Q2HR PRN IV PAIN; Start 08/31/16 at 15:30; Stop at 15:29; Status DC Albuterol/ Ipratropium (Duoneb) 3 ml RTQID NEB Last administered on 09/01/16 11 :10; Start 08/31/16 at 16:00; Stop 09/01/16 at 11:43; Status DC Acetaminophen/ Hydrocodone Bitart (Lortab 10/325) 1 tab PRN Q6HRS PRN PO PAIN mild to mod; Start 09/01/16 at 11:45 Morphine Sulfate (Ms Contin) 30 mg PRN TID PRN PO BREAKTHROUGH PAIN; Start 09/01 at 11:45 Pantoprazole Sodium (Protonix) 40 mg DAILYAC PO Last administered on 09/02/16 08:32; Start 09/01/16 at 12:00 Budesonide (Pulmicort) 0.5 mg RTBID NEB Last administered on 09/02/16 07:06; Start 09/01/16 at 20:00 Albuterol/ Ipratropium (Duoneb) 3 ml RTQID NEB Last administered on 09/02/16 11 :21; Start 09/01/16 at 12:00 Methylprednisolone Sodium Succinate (Solu-Medrol 40mg Vial) 60 mg Q12HR IV ; Start 09/01/16 at 13:30; Stop 09/01/16 at 13:30; Status DC Methylprednisolone Sodium Succinate (Solu-Medrol 40mg Vial) 30 mg Q12HR IV Last administered on 09/02/16 08:32; Start 09/01/16 at 13:30 Doxycycline Hyclate (Vibra-Tab) 100 mg BID PO Last administered on 09/02/16 08: 32; Start 09/01/16 at 17:00 Docusate Sodium (Colace) 100 mg BID PO ; Start 09/02/16 at 21:00; Status UNV Polyethylene Glycol (miraLAX PACKET) 17 gm PRN DAILY PRN PO CONSTIPATION; Start 09/02/16 at 14:00; Status UNV Magnesium Hydroxide (Milk Of Magnesia) 2,400 mg PRN DAILY PRN PO CONSTIPATION; Start 09/02/16 at 14:00; Status UNV Active Scripts Active Reported Vitamin D2 (Ergocalciferol (Vitamin D2)) 50,000 Unit Capsule 1 Cap PO TWICE WEEKLY Advair 250-50 Diskus (Fluticasone/Salmeterol) 1 Each Disk.w.dev 1 Puff IH BID Morphine Sulfate Er (Morphine Sulfate) 30 Mg Tablet.er 1 Tab PO PRN TID PRN Hydrocodone-Apap 10-325 (Hydrocodone Bit/Acetaminophen) 1 Each Tablet 1 Tab PO PRN Q6HRS PRN Nexium Capsule (Esomeprazole Magnesium) 20 Mg Capsule.dr 1 Cap PO DAILY Spiriva (Tiotropium [place]) 18 Mcg Cap.w.dev 1 Cap IH DAILY Vitals/I & O Vital Sign - Last 24 Hours 09/01/16 09/01/16 09/01/16 09/01/16 15:03 15:48 19:54 20:00 Temp 97.8 98.3 97.8 98.3 Pulse 84 67 Resp 16 16 B/P 143/66 133/65 Pulse Ox 94 100 O2 Delivery Room Air Nasal Cannula Nasal Cannula Nasal Cannula O2 Flow Rate 2.0 2.0 2.0 09/01/16 09/01/16 09/02/16 09/02/16 20:09 23:06 03:12 07:00 Temp 98.1 97.5 97.6 98.1 97.5 97.6 Pulse 70 65 78 Resp 16 18 16 B/P 135/61 144/71 128/60 Pulse Ox 98 99 100 100 O2 Delivery Nasal Cannula Nasal Cannula Nasal Cannula Nasal Cannula O2 Flow Rate 2.0 2.0 2.0 2.0 09/02/16 09/02/16 09/02/16 09/02/16 07:07 07:08 08:00 11:00 Temp 97.5 97.5 Pulse 76 Resp 20 B/P 107/58 Pulse Ox 98 98 98 O2 Delivery Nasal Cannula Nasal Cannula Nasal Cannula Nasal Cannula O2 Flow Rate 2.0 2.0 2.0 2.0 09/02/16 11:22 Pulse Ox 97 O2 Delivery Nasal Cannula O2 Flow Rate 2.0 Intake and Output 09/01/16 09/01/16 09/02/16 15:00 23:00 07:00 Intake Total 360 ml Output Total 400 ml 100 ml Balance -400 ml 260 ml CASTLE,NIAL K III DO Sep 02, 2016 14:01
--- NOTE | 2016-09-02 14:05 | PDOC ---
PULMONARY PROGRESS NOTES Subjective PT FEELS BETTER WANTS TO KNOW WHEN GOING HOME Vitals Vital Signs Date Time Temp Pulse Resp B/P Pulse Ox O2 Delivery O2 Flow Rate FiO2 09/02/16 11:22 97 Nasal Cannula 2.0 09/02/16 11:00 97.5 76 20 107/58 97.5 ROS: No Nausea, No Chest Pain, No Abdominal Pain, No Increase Cough Lungs: Clear Cardiovascular: S1 Abdomen: Soft Neuro Exam: Alert Extremities: No Edema Skin: Warm Labs Laboratory Tests Test 08/31/16 14:15 08/31/16 20:40 09/01/16 03:45 09/01/16 04:50 White Blood Count 4.5x10^3/uL (4.0-11.0) 3.8x10^3/uL (4.0-11.0) Red Blood Count 4.45x10^6/uL (4.30-5.70) 4.36x10^6/uL (4.30-5.70) Hemoglobin 12.4g/dL (13.0-17.5) 12.1g/dL (13.0-17.5) Hematocrit 39.3% (39.0-53.0) 38.5% (39.0-53.0) Mean Corpuscular Volume 88fL (79-100) 88fL (79-100) Mean Corpuscular Hemoglobin 28pg (25-35) 28pg (25-35) Mean Corpuscular Hemoglobin Concent 32g/dL (31-37) 31g/dL (31-37) Red Cell Distribution Width 14.5% (11.5-14.5) 14.5% (11.5-14.5) Platelet Count 190x10^3/uL (140-400) 180x10^3/uL (140-400) Neutrophils (%) (Auto) 77% (31-73) 93% (31-73) Lymphocytes (%) (Auto) 7% (24-48) 5% (24-48) Monocytes (%) (Auto) 10% (0-9) 2% (0-9) Eosinophils (%) (Auto) 6% (0-3) 0% (0-3) Basophils (%) (Auto) 1% (0-3) 0% (0-3) Neutrophils # (Auto) 3.5x10^3uL (1.8-7.7) 3.5x10^3uL (1.8-7.7) Lymphocytes # (Auto) 0.3x10^3/uL (1.0-4.8) 0.2x10^3/uL (1.0-4.8) Monocytes # (Auto) 0.4x10^3/uL (0.0-1.1) 0.1x10^3/uL (0.0-1.1) Eosinophils # (Auto) 0.3x10^3/uL (0.0-0.7) 0.0x10^3/uL (0.0-0.7) Basophils # (Auto) 0.0x10^3/uL (0.0-0.2) 0.0x10^3/uL (0.0-0.2) Sodium Level 137mmol/L (136-145) 139mmol/L (136-145) Potassium Level 4.5mmol/L (3.5-5.1) 3.9mmol/L (3.5-5.1) Chloride Level 96mmol/L (98-107) 96mmol/L (98-107) Carbon Dioxide Level 35mmol/L (21-32) 35mmol/L (21-32) Anion Gap 6 (6-14) 8 (6-14) Blood Urea Nitrogen 15mg/dL (8-26) 15mg/dL (8-26) Creatinine 0.6mg/dL (0.7-1.3) 0.5mg/dL (0.7-1.3) Estimated GFR (Cockcroft-Gault) 130.6 161.2 Glucose Level 97mg/dL (70-99) 78mg/dL (70-99) Calcium Level 9.0mg/dL (8.5-10.1) 9.2mg/dL (8.5-10.1) Total Bilirubin 0.6mg/dL (0.2-1.0) Direct Bilirubin 0.1mg/dL (0.0-0.2) Aspartate Amino Transf (AST/SGOT) 17U/L (15-37) Alanine Aminotransferase (ALT/SGPT) 21U/L (16-63) Alkaline Phosphatase 94U/L (46-116) Troponin I Quantitative < 0.017ng/mL (0.000-0.055) < 0.017ng/mL (0.000-0.055) < 0.017ng/mL (0.000-0.055) CE-Mta-D-Type Natriuretic Peptide 174pg/mL (0-449) Total Protein 7.0g/dL (6.4-8.2) Albumin 3.3g/dL (3.4-5.0) Lipase 96U/L (73-393) Segmented Neutrophils % 98% (35-66) Lymphocytes % 2% (24-48) Platelet Estimate Adequate (ADEQUATE) Test 09/02/16 00:30 09/02/16 03:55 Influenza Type A Antigen Negative (NEGATIVE) Influenza Type B Antigen Negative (NEGATIVE) White Blood Count 3.5x10^3/uL (4.0-11.0) Red Blood Count 4.24x10^6/uL (4.30-5.70) Hemoglobin 11.6g/dL (13.0-17.5) Hematocrit 36.9% (39.0-53.0) Mean Corpuscular Volume 87fL (79-100) Mean Corpuscular Hemoglobin 28pg (25-35) Mean Corpuscular Hemoglobin Concent 32g/dL (31-37) Red Cell Distribution Width 14.3% (11.5-14.5) Platelet Count 198x10^3/uL (140-400) Neutrophils (%) (Auto) 94% (31-73) Lymphocytes (%) (Auto) 5% (24-48) Monocytes (%) (Auto) 1% (0-9) Eosinophils (%) (Auto) 0% (0-3) Basophils (%) (Auto) 0% (0-3) Neutrophils # (Auto) 3.3x10^3uL (1.8-7.7) Lymphocytes # (Auto) 0.2x10^3/uL (1.0-4.8) Monocytes # (Auto) 0.0x10^3/uL (0.0-1.1) Eosinophils # (Auto) 0.0x10^3/uL (0.0-0.7) Basophils # (Auto) 0.0x10^3/uL (0.0-0.2) Sodium Level 136mmol/L (136-145) Potassium Level 4.6mmol/L (3.5-5.1) Chloride Level 97mmol/L (98-107) Carbon Dioxide Level 34mmol/L (21-32) Anion Gap 5 (6-14) Blood Urea Nitrogen 19mg/dL (8-26) Creatinine 0.6mg/dL (0.7-1.3) Estimated GFR (Cockcroft-Gault) 130.6 Glucose Level 121mg/dL (70-99) Calcium Level 9.1mg/dL (8.5-10.1) Laboratory Tests Test 09/02/16 00:30 09/02/16 03:55 Influenza Type A Antigen Negative (NEGATIVE) Influenza Type B Antigen Negative (NEGATIVE) White Blood Count 3.5x10^3/uL (4.0-11.0) Red Blood Count 4.24x10^6/uL (4.30-5.70) Hemoglobin 11.6g/dL (13.0-17.5) Hematocrit 36.9% (39.0-53.0) Mean Corpuscular Volume 87fL (79-100) Mean Corpuscular Hemoglobin 28pg (25-35) Mean Corpuscular Hemoglobin Concent 32g/dL (31-37) Red Cell Distribution Width 14.3% (11.5-14.5) Platelet Count 198x10^3/uL (140-400) Neutrophils (%) (Auto) 94% (31-73) Lymphocytes (%) (Auto) 5% (24-48) Monocytes (%) (Auto) 1% (0-9) Eosinophils (%) (Auto) 0% (0-3) Basophils (%) (Auto) 0% (0-3) Neutrophils # (Auto) 3.3x10^3uL (1.8-7.7) Lymphocytes # (Auto) 0.2x10^3/uL (1.0-4.8) Monocytes # (Auto) 0.0x10^3/uL (0.0-1.1) Eosinophils # (Auto) 0.0x10^3/uL (0.0-0.7) Basophils # (Auto) 0.0x10^3/uL (0.0-0.2) Sodium Level 136mmol/L (136-145) Potassium Level 4.6mmol/L (3.5-5.1) Chloride Level 97mmol/L (98-107) Carbon Dioxide Level 34mmol/L (21-32) Anion Gap 5 (6-14) Blood Urea Nitrogen 19mg/dL (8-26) Creatinine 0.6mg/dL (0.7-1.3) Estimated GFR (Cockcroft-Gault) 130.6 Glucose Level 121mg/dL (70-99) Calcium Level 9.1mg/dL (8.5-10.1) Medications Active Scripts Medications Dose Route/Sig Days Date Category Vitamin D2 (Ergocalciferol (Vitamin D2)) 50,000 Unit Capsule 1 Cap PO TWICE WEEKLY 09/01/16 Reported Advair 250-50 Diskus (Fluticasone/Salmeterol) 1 Each Disk.w.dev 1 Puff IH BID 09/01/16 Reported Morphine Sulfate Er (Morphine Sulfate) 30 Mg Tablet.er 1 Tab PO PRN TID PRN 09/01/16 Reported Hydrocodone-Apap 10-325 (Hydrocodone Bit/Acetaminophen) 1 Each Tablet 1 Tab PO PRN Q6HRS PRN 09/01/16 Reported Nexium Capsule (Esomeprazole Magnesium) 20 Mg Capsule.dr 1 Cap PO DAILY 09/01/16 Reported Spiriva (Tiotropium [place]) 18 Mcg Cap.w.dev 1 Cap IH DAILY 09/01/16 Reported Impression . 1. Acute on chronic respiratory failure. 2. Acute exacerbation of chronic obstructive pulmonary disease. 3. Acute nonspecific bronchitis. 4. Chronic changes on x-ray compatible with pulmonary fibrosis. Plan . HOME SOON OK BY ME TAPER PRED FOLLOW UP IN OFFICE IN SEP 1. Continue oxygen supplementation. 2. Steroids. 3. Antibiotics for acute bronchitis. RUDY LYON MD Sep 02, 2016 14:05
[2016-09-02 15:00] VITALS: BP 109/67
[2016-09-02 19:38] VITALS: BP 117/66
[2016-09-02] MEDS: DOCUSATE SODIUM 100 MG CAPSULE PO SCH (20:22)
[2016-09-02 23:05] VITALS: BP 130/68
[2016-09-03 03:24] VITALS: BP 133/73
[2016-09-03 04:40] LABS: BASO % 0 % (0-3); EOS % 0 % (0-3); HEMATOCRIT 37.4 % (39.0-53.0); HEMOGLOBIN 12.1 g/dL (13.0-17.5); LYMPH # 0.2 x10^3/uL (1.0-4.8); LYMPH % 3 % (24-48); MEAN CORPUSCULAR HEMOGLOBIN 28 pg (25-35); MEAN CORPUSCULAR HGB CONC 32 g/dL (31-37); MEAN CORPUSCULAR VOLUME 86 fL (79-100); MONO % 3 % (0-9); NEUT % 94 % (31-73); PLATELET COUNT 216 x10^3/uL (140-400); RED BLOOD COUNT 4.34 x10^6/uL (4.30-5.70); RED CELL DISTRIBUTION WIDTH 14.3 % (11.5-14.5); WHITE BLOOD COUNT 5.7 x10^3/uL (4.0-11.0)
[2016-09-03 04:56] LABS: CALCIUM 8.8 mg/dL (8.5-10.1); CREATININE 0.6 mg/dL (0.7-1.3); GFR 130.6; POTASSIUM 4.3 mmol/L (3.5-5.1)
[2016-09-03] MEDS: IPRATRPIUM/ALBUTEROL 0.5/2.5MG 3 ML NEBU. NEB SCH ×3 (07:14→15:24)
[2016-09-03] MEDS: BUDESONIDE 0.5 MG/2 ML NEBU NEB SCH (07:14)
[2016-09-03 07:33] VITALS: BP 137/65
[2016-09-03] MEDS: methylPREDNISolone SOD SUCC PF 40 MG/ML VIAL. IV SCH (08:16)
[2016-09-03] MEDS: PANTOPRAZOLE 40 MG TABLET. PO SCH (08:16)
[2016-09-03] MEDS: DOXYCYCLINE HYCLATE 100 MG TABLET PO SCH (08:16)
[2016-09-03] MEDS: DOCUSATE SODIUM 100 MG CAPSULE PO SCH (08:16)
[2016-09-03 10:02] VITALS: BP 142/70
--- NOTE | 2016-09-03 12:06 | PDOC ---
PULMONARY PROGRESS NOTES Subjective PT FEELS BETTER WANTS TO KNOW WHEN GOING HOME Vitals Vital Signs Date Time Temp Pulse Resp B/P Pulse Ox O2 Delivery O2 Flow Rate FiO2 09/03/16 11:21 98 Nasal Cannula 2.0 09/03/16 07:33 97.5 62 137/65 97.5 09/02/16 19:38 20 ROS: No Nausea, No Chest Pain, No Abdominal Pain, No Increase Cough Lungs: Clear Cardiovascular: S1 Abdomen: Soft Neuro Exam: Alert Extremities: No Edema Skin: Warm Labs Laboratory Tests Test 09/02/16 00:30 09/02/16 03:55 09/03/16 04:05 Influenza Type A Antigen Negative (NEGATIVE) Influenza Type B Antigen Negative (NEGATIVE) White Blood Count 3.5x10^3/uL (4.0-11.0) 5.7x10^3/uL (4.0-11.0) Red Blood Count 4.24x10^6/uL (4.30-5.70) 4.34x10^6/uL (4.30-5.70) Hemoglobin 11.6g/dL (13.0-17.5) 12.1g/dL (13.0-17.5) Hematocrit 36.9% (39.0-53.0) 37.4% (39.0-53.0) Mean Corpuscular Volume 87fL (79-100) 86fL (79-100) Mean Corpuscular Hemoglobin 28pg (25-35) 28pg (25-35) Mean Corpuscular Hemoglobin Concent 32g/dL (31-37) 32g/dL (31-37) Red Cell Distribution Width 14.3% (11.5-14.5) 14.3% (11.5-14.5) Platelet Count 198x10^3/uL (140-400) 216x10^3/uL (140-400) Neutrophils (%) (Auto) 94% (31-73) 94% (31-73) Lymphocytes (%) (Auto) 5% (24-48) 3% (24-48) Monocytes (%) (Auto) 1% (0-9) 3% (0-9) Eosinophils (%) (Auto) 0% (0-3) 0% (0-3) Basophils (%) (Auto) 0% (0-3) 0% (0-3) Neutrophils # (Auto) 3.3x10^3uL (1.8-7.7) 5.4x10^3uL (1.8-7.7) Lymphocytes # (Auto) 0.2x10^3/uL (1.0-4.8) 0.2x10^3/uL (1.0-4.8) Monocytes # (Auto) 0.0x10^3/uL (0.0-1.1) 0.2x10^3/uL (0.0-1.1) Eosinophils # (Auto) 0.0x10^3/uL (0.0-0.7) 0.0x10^3/uL (0.0-0.7) Basophils # (Auto) 0.0x10^3/uL (0.0-0.2) 0.0x10^3/uL (0.0-0.2) Sodium Level 136mmol/L (136-145) 136mmol/L (136-145) Potassium Level 4.6mmol/L (3.5-5.1) 4.3mmol/L (3.5-5.1) Chloride Level 97mmol/L (98-107) 99mmol/L (98-107) Carbon Dioxide Level 34mmol/L (21-32) 32mmol/L (21-32) Anion Gap 5 (6-14) 5 (6-14) Blood Urea Nitrogen 19mg/dL (8-26) 21mg/dL (8-26) Creatinine 0.6mg/dL (0.7-1.3) 0.6mg/dL (0.7-1.3) Estimated GFR (Cockcroft-Gault) 130.6 130.6 Glucose Level 121mg/dL (70-99) 135mg/dL (70-99) Calcium Level 9.1mg/dL (8.5-10.1) 8.8mg/dL (8.5-10.1) Laboratory Tests Test 09/03/16 04:05 White Blood Count 5.7x10^3/uL (4.0-11.0) Red Blood Count 4.34x10^6/uL (4.30-5.70) Hemoglobin 12.1g/dL (13.0-17.5) Hematocrit 37.4% (39.0-53.0) Mean Corpuscular Volume 86fL (79-100) Mean Corpuscular Hemoglobin 28pg (25-35) Mean Corpuscular Hemoglobin Concent 32g/dL (31-37) Red Cell Distribution Width 14.3% (11.5-14.5) Platelet Count 216x10^3/uL (140-400) Neutrophils (%) (Auto) 94% (31-73) Lymphocytes (%) (Auto) 3% (24-48) Monocytes (%) (Auto) 3% (0-9) Eosinophils (%) (Auto) 0% (0-3) Basophils (%) (Auto) 0% (0-3) Neutrophils # (Auto) 5.4x10^3uL (1.8-7.7) Lymphocytes # (Auto) 0.2x10^3/uL (1.0-4.8) Monocytes # (Auto) 0.2x10^3/uL (0.0-1.1) Eosinophils # (Auto) 0.0x10^3/uL (0.0-0.7) Basophils # (Auto) 0.0x10^3/uL (0.0-0.2) Sodium Level 136mmol/L (136-145) Potassium Level 4.3mmol/L (3.5-5.1) Chloride Level 99mmol/L (98-107) Carbon Dioxide Level 32mmol/L (21-32) Anion Gap 5 (6-14) Blood Urea Nitrogen 21mg/dL (8-26) Creatinine 0.6mg/dL (0.7-1.3) Estimated GFR (Cockcroft-Gault) 130.6 Glucose Level 135mg/dL (70-99) Calcium Level 8.8mg/dL (8.5-10.1) Medications Active Scripts Medications Dose Route/Sig Days Date Category Vitamin D2 (Ergocalciferol (Vitamin D2)) 50,000 Unit Capsule 1 Cap PO TWICE WEEKLY 09/01/16 Reported Advair 250-50 Diskus (Fluticasone/Salmeterol) 1 Each Disk.w.dev 1 Puff IH BID 09/01/16 Reported Morphine Sulfate Er (Morphine Sulfate) 30 Mg Tablet.er 1 Tab PO PRN TID PRN 09/01/16 Reported Hydrocodone-Apap 10-325 (Hydrocodone Bit/Acetaminophen) 1 Each Tablet 1 Tab PO PRN Q6HRS PRN 09/01/16 Reported Nexium Capsule (Esomeprazole Magnesium) 20 Mg Capsule. 1 Cap PO DAILY 09/01/16 Reported Spiriva (Tiotropium Hulett) 18 Mcg Cap.w.dev 1 Cap IH DAILY 09/01/16 Reported Impression . 1. Acute on chronic respiratory failure. 2. Acute exacerbation of chronic obstructive pulmonary disease. 3. Acute nonspecific bronchitis. 4. Chronic changes on x-ray compatible with pulmonary fibrosis. Plan . HOME TODAY SPOKE WITH RUDY BERNARDO MD Sep 03, 2016 12:06
--- NOTE | 2016-09-03 14:47 | PDOC ---
PROGRESS NOTES Chief Complaint Chief Complaint - Acute hypoxic respiratory failure - Acute exacerbation COPD - Charcot Daniella Tooth History of Present Illness History of Present Illness 76 year old male examined while lying in bed this morning. He states that he is breathing much better, but does still have an occasionally productive cough. States he was able to have bowel movement yesterday and feels better after that as well. Would like to go home today. Vitals Vitals Vital Signs Date Time Temp Pulse Resp B/P Pulse Ox O2 Delivery O2 Flow Rate FiO2 09/03/16 11:21 98 Nasal Cannula 2.0 09/03/16 10:02 97.4 71 142/70 97.4 09/02/16 19:38 20 Physical Exam General: Alert, Oriented X3, Cooperative, No acute distress Heart: Regular rate, Normal S1, Normal S2, No murmurs Lungs: Clear, Other (Very minimal wheezes R>L) Abdomen: Normal bowel sounds, Soft, No tenderness Extremities: No clubbing, No cyanosis, No edema Skin: No breakdown, No significant lesion Labs LABS Laboratory Tests Test 09/03/16 04:05 White Blood Count 5.7x10^3/uL (4.0-11.0) Red Blood Count 4.34x10^6/uL (4.30-5.70) Hemoglobin 12.1g/dL (13.0-17.5) Hematocrit 37.4% (39.0-53.0) Mean Corpuscular Volume 86fL (79-100) Mean Corpuscular Hemoglobin 28pg (25-35) Mean Corpuscular Hemoglobin Concent 32g/dL (31-37) Red Cell Distribution Width 14.3% (11.5-14.5) Platelet Count 216x10^3/uL (140-400) Neutrophils (%) (Auto) 94% (31-73) Lymphocytes (%) (Auto) 3% (24-48) Monocytes (%) (Auto) 3% (0-9) Eosinophils (%) (Auto) 0% (0-3) Basophils (%) (Auto) 0% (0-3) Neutrophils # (Auto) 5.4x10^3uL (1.8-7.7) Lymphocytes # (Auto) 0.2x10^3/uL (1.0-4.8) Monocytes # (Auto) 0.2x10^3/uL (0.0-1.1) Eosinophils # (Auto) 0.0x10^3/uL (0.0-0.7) Basophils # (Auto) 0.0x10^3/uL (0.0-0.2) Sodium Level 136mmol/L (136-145) Potassium Level 4.3mmol/L (3.5-5.1) Chloride Level 99mmol/L (98-107) Carbon Dioxide Level 32mmol/L (21-32) Anion Gap 5 (6-14) Blood Urea Nitrogen 21mg/dL (8-26) Creatinine 0.6mg/dL (0.7-1.3) Estimated GFR (Cockcroft-Gault) 130.6 Glucose Level 135mg/dL (70-99) Calcium Level 8.8mg/dL (8.5-10.1) Review of Systems Review of Systems Cough persists Breathing much improved Less constipation Assessment and Plan Assessmemt and Plan Assessment: - Acute hypoxic respiratory failure - Acute exacerbation COPD - Charcot Daniella Tooth Plan: - Discussed case with Dr. Diaz of pulmonology, who feels patient can be discharged. Patient wishes to be discharged as well. Will proceed with discharge today - Continue breathing treatments as needed - Supplement oxygen prn. On oxygen at baseline. - PT/OT as tolerated - Recheck labs if not able to discharge - Appreciate subspecialty input Problems: Comment Review of Relevant I have reviewed the following items shawn (where applicable) has been applied. Labs Laboratory Tests Test 09/02/16 00:30 09/02/16 03:55 09/03/16 04:05 Influenza Type A Antigen Negative (NEGATIVE) Influenza Type B Antigen Negative (NEGATIVE) White Blood Count 3.5x10^3/uL (4.0-11.0) 5.7x10^3/uL (4.0-11.0) Red Blood Count 4.24x10^6/uL (4.30-5.70) 4.34x10^6/uL (4.30-5.70) Hemoglobin 11.6g/dL (13.0-17.5) 12.1g/dL (13.0-17.5) Hematocrit 36.9% (39.0-53.0) 37.4% (39.0-53.0) Mean Corpuscular Volume 87fL (79-100) 86fL (79-100) Mean Corpuscular Hemoglobin 28pg (25-35) 28pg (25-35) Mean Corpuscular Hemoglobin Concent 32g/dL (31-37) 32g/dL (31-37) Red Cell Distribution Width 14.3% (11.5-14.5) 14.3% (11.5-14.5) Platelet Count 198x10^3/uL (140-400) 216x10^3/uL (140-400) Neutrophils (%) (Auto) 94% (31-73) 94% (31-73) Lymphocytes (%) (Auto) 5% (24-48) 3% (24-48) Monocytes (%) (Auto) 1% (0-9) 3% (0-9) Eosinophils (%) (Auto) 0% (0-3) 0% (0-3) Basophils (%) (Auto) 0% (0-3) 0% (0-3) Neutrophils # (Auto) 3.3x10^3uL (1.8-7.7) 5.4x10^3uL (1.8-7.7) Lymphocytes # (Auto) 0.2x10^3/uL (1.0-4.8) 0.2x10^3/uL (1.0-4.8) Monocytes # (Auto) 0.0x10^3/uL (0.0-1.1) 0.2x10^3/uL (0.0-1.1) Eosinophils # (Auto) 0.0x10^3/uL (0.0-0.7) 0.0x10^3/uL (0.0-0.7) Basophils # (Auto) 0.0x10^3/uL (0.0-0.2) 0.0x10^3/uL (0.0-0.2) Sodium Level 136mmol/L (136-145) 136mmol/L (136-145) Potassium Level 4.6mmol/L (3.5-5.1) 4.3mmol/L (3.5-5.1) Chloride Level 97mmol/L (98-107) 99mmol/L (98-107) Carbon Dioxide Level 34mmol/L (21-32) 32mmol/L (21-32) Anion Gap 5 (6-14) 5 (6-14) Blood Urea Nitrogen 19mg/dL (8-26) 21mg/dL (8-26) Creatinine 0.6mg/dL (0.7-1.3) 0.6mg/dL (0.7-1.3) Estimated GFR (Cockcroft-Gault) 130.6 130.6 Glucose Level 121mg/dL (70-99) 135mg/dL (70-99) Calcium Level 9.1mg/dL (8.5-10.1) 8.8mg/dL (8.5-10.1) Laboratory Tests Test 09/03/16 04:05 White Blood Count 5.7x10^3/uL (4.0-11.0) Red Blood Count 4.34x10^6/uL (4.30-5.70) Hemoglobin 12.1g/dL (13.0-17.5) Hematocrit 37.4% (39.0-53.0) Mean Corpuscular Volume 86fL (79-100) Mean Corpuscular Hemoglobin 28pg (25-35) Mean Corpuscular Hemoglobin Concent 32g/dL (31-37) Red Cell Distribution Width 14.3% (11.5-14.5) Platelet Count 216x10^3/uL (140-400) Neutrophils (%) (Auto) 94% (31-73) Lymphocytes (%) (Auto) 3% (24-48) Monocytes (%) (Auto) 3% (0-9) Eosinophils (%) (Auto) 0% (0-3) Basophils (%) (Auto) 0% (0-3) Neutrophils # (Auto) 5.4x10^3uL (1.8-7.7) Lymphocytes # (Auto) 0.2x10^3/uL (1.0-4.8) Monocytes # (Auto) 0.2x10^3/uL (0.0-1.1) Eosinophils # (Auto) 0.0x10^3/uL (0.0-0.7) Basophils # (Auto) 0.0x10^3/uL (0.0-0.2) Sodium Level 136mmol/L (136-145) Potassium Level 4.3mmol/L (3.5-5.1) Chloride Level 99mmol/L (98-107) Carbon Dioxide Level 32mmol/L (21-32) Anion Gap 5 (6-14) Blood Urea Nitrogen 21mg/dL (8-26) Creatinine 0.6mg/dL (0.7-1.3) Estimated GFR (Cockcroft-Gault) 130.6 Glucose Level 135mg/dL (70-99) Calcium Level 8.8mg/dL (8.5-10.1) Medications Current Medications Albuterol/ Ipratropium (Duoneb) 3 ml 1X ONCE NEB Last administered on 15:14; Start 08/31/16 at 14:30; Stop 08/31/16 at 14:31; Status DC Prednisone (Prednisone) 50 mg 1X ONCE PO Last administered on 08/31/16 14:58; Start 08/31/16 at 14:30; Stop 08/31/16 at 14:31; Status DC Ondansetron HCl (Zofran) 4 mg PRN Q8HRS PRN IV NAUSEA/VOMITING; Start 08/31/16 at 15:30; Stop 09/01/16 at 15:29; Status DC Morphine Sulfate 2 mg PRN Q2HR PRN IV PAIN; Start 08/31/16 at 15:30; Stop at 15:29; Status DC Albuterol/ Ipratropium (Duoneb) 3 ml RTQID NEB Last administered on 09/01/16 11 :10; Start 08/31/16 at 16:00; Stop 09/01/16 at 11:43; Status DC Acetaminophen/ Hydrocodone Bitart (Lortab 10/325) 1 tab PRN Q6HRS PRN PO PAIN mild to mod; Start 09/01/16 at 11:45 Morphine Sulfate (Ms Contin) 30 mg PRN TID PRN PO BREAKTHROUGH PAIN; Start 09/01 at 11:45 Pantoprazole Sodium (Protonix) 40 mg DAILYAC PO Last administered on 09/03/16 08:16; Start 09/01/16 at 12:00 Budesonide (Pulmicort) 0.5 mg RTBID NEB Last administered on 09/03/16 07:14; Start 09/01/16 at 20:00 Albuterol/ Ipratropium (Duoneb) 3 ml RTQID NEB Last administered on 09/03/16 11 :20; Start 09/01/16 at 12:00 Methylprednisolone Sodium Succinate (Solu-Medrol 40mg Vial) 60 mg Q12HR IV ; Start 09/01/16 at 13:30; Stop 09/01/16 at 13:30; Status DC Methylprednisolone Sodium Succinate (Solu-Medrol 40mg Vial) 30 mg Q12HR IV Last administered on 09/03/16 08:16; Start 09/01/16 at 13:30 Doxycycline Hyclate (Vibra-Tab) 100 mg BID PO Last administered on 09/03/16 08: 16; Start 09/01/16 at 17:00 Docusate Sodium (Colace) 100 mg BID PO Last administered on 09/03/16 08:16; Start 09/02/16 at 21:00 Polyethylene Glycol (miraLAX PACKET) 17 gm PRN DAILY PRN PO CONSTIPATION Last administered on 09/02/16 14:35; Start 09/02/16 at 14:00 Magnesium Hydroxide (Milk Of Magnesia) 2,400 mg PRN DAILY PRN PO CONSTIPATION Last administered on 09/03/16 08:16; Start 09/02/16 at 14:00 Active Scripts Active Reported Vitamin D2 (Ergocalciferol (Vitamin D2)) 50,000 Unit Capsule 1 Cap PO TWICE WEEKLY Advair 250-50 Diskus (Fluticasone/Salmeterol) 1 Each Disk.w.dev 1 Puff IH BID Morphine Sulfate Er (Morphine Sulfate) 30 Mg Tablet.er 1 Tab PO PRN TID PRN Hydrocodone-Apap 10-325 (Hydrocodone Bit/Acetaminophen) 1 Each Tablet 1 Tab PO PRN Q6HRS PRN Nexium Capsule (Esomeprazole Magnesium) 20 Mg Capsule.dr 1 Cap PO DAILY Spiriva (Tiotropium [place]) 18 Mcg Cap.w.dev 1 Cap IH DAILY Vitals/I & O Vital Sign - Last 24 Hours 09/02/16 09/02/16 09/02/16 09/02/16 15:00 15:23 19:10 19:11 Temp 97.7 97.7 Pulse 70 Resp 18 B/P 109/67 Pulse Ox 97 97 97 O2 Delivery Nasal Cannula Nasal Cannula Nasal Cannula Nasal Cannula O2 Flow Rate 2.0 2.0 2.0 2.0 09/02/16 09/02/16 09/02/16 09/03/16 19:38 19:48 23:05 03:24 Temp 98.4 97.9 97.8 98.4 97.9 97.8 Pulse 91 73 63 Resp 20 B/P 117/66 130/68 133/73 Pulse Ox 96 97 95 O2 Delivery Nasal Cannula Nasal Cannula Nasal Cannula Nasal Cannula O2 Flow Rate 2.0 2.0 2.0 2.0 09/03/16 09/03/16 09/03/16 09/03/16 07:15 07:30 07:33 08:00 Temp 97.5 97.5 Pulse 62 B/P 137/65 Pulse Ox 98 97 98 O2 Delivery Nasal Cannula Nasal Cannula Nasal Cannula Nasal Cannula O2 Flow Rate 2.0 2.0 2.0 2.0 09/03/16 09/03/16 10:02 11:21 Temp 97.4 97.4 Pulse 71 B/P 142/70 Pulse Ox 99 98 O2 Delivery Nasal Cannula Nasal Cannula O2 Flow Rate 2.0 2.0 Intake and Output 09/02/16 09/02/16 09/03/16 15:00 23:00 07:00 Intake Total 240 ml 140 ml 600 ml Output Total 250 ml 100 ml Balance 240 ml -110 ml 500 ml ELEAZAR MEDINA III DO Sep 03, 2016 14:47
[2016-09-03 15:11] VITALS: BP 120/60
--- NOTE | 2016-09-05 08:32 | DS ---
DATE OF DISCHARGE: 09/03/2016 ADMISSION DIAGNOSIS: Chronic obstructive pulmonary disease exacerbation. DISCHARGE DIAGNOSIS: Resolving respiratory failure with chronic obstructive pulmonary disease exacerbation. HOSPITAL COURSE: The patient is a pleasant 76-year-old male who presented with COPD exacerbation with respiratory failure. He was admitted. We gave him steroids, breathing treatments, oxygen, antibiotics, and consult with pulmonary medicine. Over the past few days, he has returned to his baseline, we discharged to home. DISPOSITION: Home. ACTIVITY: As tolerated. DIET: Low sodium. MEDICATIONS: Please see the MRAD. TOTAL TIME OF DISCHARGE: 34 minutes. MITCHL Mireya MEDINA DO DR: BRENNON/iggy JOB#: [id number] / [id number]
== END 2016-09-03 17:05 | disposition home or self-care (01) | DRG 189 ==
LOC: ER 14:05 → 5 NORTH 15:15 → OBSVTOIN 15:15
PROVIDERS: ADMIT Internal Medicine Hematology & Oncology; ATTEND Internal Medicine Hematology & Oncology
DX: J96.21 Acute and chronic respiratory failure with hypoxia (principal); J44.1 Chronic obstructive pulmonary disease with (acute) exacerbation; J44.0 Chronic obstructive pulmonary disease with (acute) lower respiratory infection; J20.9 Acute bronchitis, unspecified; J84.10 Pulmonary fibrosis, unspecified; F17.200 Nicotine dependence, unspecified, uncomplicated; G60.0 Hereditary motor and sensory neuropathy; Z99.81 Dependence on supplemental oxygen; Z82.49 Family history of ischemic heart disease and other diseases of the circulatory system
CPT/HCPCS: 36415; 71010; 80048; 80076; 83690; 83880; 84484; 85007; 85027; 87804; 93005; 94250; 94640; 94760; J2920; J7512; J7620; 99285-25